=== PATIENT | female | born 1970 | race Caucasian/White ===

== ENCOUNTER 2019-05-07 07:47 | Emergency (ER) | payer SELFPAY ==
[~2019-05-07] VITALS: Ht 157.5 cm; Wt 85.0 kg
[~2019-05-07 07:47] MED LIST: LEVAQUIN 750MG750 M1 PO; NORCO 325 MG-51 TAB PO; PROAIR HFA0.09 MG/AC IH; TAMIFLU 75MG75 MG PO
[2019-05-07 08:16] VITALS: BP 118/75; TEMP 97.3
[2019-05-07] MEDS ORDERED: LIDODERM 5% PATC1 EA TP (08:38)
[2019-05-07 09:05] VITALS: PULSE 85
== END 2019-05-07 09:05 | disposition home or self-care (01) ==
LOC: COL.ER 07:47
DX: S39.012A Strain of muscle, fascia and tendon of lower back, initial encounter (principal); Z85.3 Personal history of malignant neoplasm of breast; X50.0XXA Overexertion from strenuous movement or load, initial encounter; Y99.0 Civilian activity done for income or pay

== ENCOUNTER → 2023-11-20 | Outpatient (CLI) | payer OTHER ==
[~2023-11-20] MED LIST changes: +Iohexol 300 - 100 ML VIAL IV ONE; +LIDODERM 5% PATC1 EA TP; +NS 100 ML IV SCH
== END ==
LOC: COL.RAD 07:35
DX: R51.9 Headache, unspecified (principal); R42 Dizziness and giddiness; Z15.01 Genetic susceptibility to malignant neoplasm of breast; Z85.3 Personal history of malignant neoplasm of breast
CPT/HCPCS: Q9967